=== PATIENT | female | born 1970 | race Two or more races ===

== ENCOUNTER 2017-06-03 19:30 | Inpatient (IN) | payer MEDICAID ==
--- NOTE | 2017-06-03 20:19 | ED Physician Chart ---
ED Chief Complaint/HPI - Patient Information Date Seen:: 06/03/17 Time Seen:: 20:00 Chief Complaint:: abdominal pain History of Present Illness:: Patient's had right upper quadrant abdominal pain for 3 days. Pain is currently 10 on a scale 1-10. She vomited all night last night. She last vomited this morning. She's had no diarrhea. She's had intermittent subjective fever. Patient is 0. Allergies:: Allergies Allergy/AdvReac Type Severity Reaction Status Date / Time No Known Allergies Allergy Verified 06/03/17 19:50 Vitals:: Vital Signs - 8 hr 06/03/17 19:30 Temp 99 F HR 88 RR 18 BP 157/91 O2 Sat % 99 Historian:: Patient, Friend Review:: Nurse's Note Reviewed ED Review of Systems - Review of Systems General/Constitutional: Fever Skin: No skin lesions Head: No headache Eyes: No loss of vision ENT: No earache Neck: No neck pain Cardio Vascular: No chest pain, No palpitations Pulmonary: No SOB GI: Nausea, Vomiting, Pain G/U: No dysuria Musculoskeletal: No bone or joint pain Endocrine: No polyuria Psychiatric: No prior psych history Hematopoietic: No bruising Allergic/Immuno: No urticaria Neurological: No syncope ED Past Medical History - Past Medical History Past Medical History: No significant medical hx Family History: None Social History: Non Smoker, No Alcohol Surgical History: None Psychiatricy History: None Medication: None Family Medical History - Family Member Mother Ethnicity: ED Physical Exam - Physical Examination General/Constitutional: Awake, Well-developed, well-nourished, Alert, No distress, GCS 15, Non-toxic appearing, Ambulatory Head: Atraumatic Eyes: Lids, conjuctiva normal, PERRL, EOMI Skin: Nl inspection, No rash, No skin lesions, No ecchymosis, Well hydrated, No lymphadenopathy ENMT: External ears, nose nl, Nasal exam nl, Lips, teeth, gums nl Neck: Nontender, Full ROM w/o pain, No JVD, No nuchal rigidity, No bruit, No mass, No stridor Respiratory: Nl effort/Exclusion, Clear to Auscultation, No Wheeze/Rhonchi/Rales Cardio Vascular: RRR, No murmur, gallop, rubs, NL S1 S2 GI: No organomegaly, No hernia, Normal BS's, Nondistended, No mass/bruits, No McBurney tenderness Other GI comments:: Right upper quadrant tenderness : No CVA tenderness Extremities: No tenderness or effusion, Full ROM, normal strength in all extremities, No edema, Normal digits & nails Neuro/Psych: Alert/oriented, DTR's symmetric, Normal sensory exam, Normal motor strength, Judgement/insight normal, Mood normal, Normal gait, No focal deficits Misc: Normal back, No paraspinal tenderness ED Labs/Radiology/EKG Results - Lab Results Results: Laboratory Results - last 24 hr 06/03/17 06/03/17 06/03/17 20:00 20:00 20:00 WBC 10.8 RBC 5.33 H Hgb 14.6 Hct 43.8 MCV 82.2 MCH 27.4 MCHC Differential 33.4 RDW 13.1 Plt Count 390 MPV 9.0 Neutrophils % 71.8 Lymphocytes % 22.1 Monocytes % 4.2 Eosinophils % 1.3 Basophils % 0.6 Sodium 137 Potassium 3.5 Chloride 102 Carbon Dioxide 26.2 Anion Gap 12.3 BUN 12 Creatinine 0.7 Est GFR ( Amer) > 60.0 Est GFR (Non-Af Amer) > 60.0 BUN/Creatinine Ratio 17.1 Glucose 98 Calcium 9.2 Magnesium 2.4 Lipase 28 Urine Test NEGATIVE - Radiology Results Results: Ultrasound showed cholecystitis and cholelithiasis ED Assessment - Assessment General Assessment: Patient should be admitted because she has cholecystitis as well as cholelithiasis ED Septic Shock - . Is Septic Shock (SBP<90, OR Lactate>4 mmol\L) present?: No - <6hrs of presentation: Vital Signs: Vital Signs - 8 hr 06/03/17 19:30 Temp 99 F HR 88 RR 18 BP 157/91 O2 Sat % 99 ED Reassessment (Disposition) - Reassessment Reassessment:: At 2245 patient's pain is subsided Reassessment Condition:: Improved - Diagnosis Diagnosis:: Biliary colic; cholelithiasis; cholecystitis - Patient Disposition Admitted to:: Med/Surg Spoke to:: Matt Schafer Admitting Medical Physician:: Matt Schafer Condition at Disposition:: Stable, Improved
[2017-06-03 20:25] LABS: % BASOPHILS 0.6 % (0.0-2.0); % EOSINOPHILS 1.3 % (0.0-5.0); % LYMPHOCYTES 22.1 % (20.0-50.0); % MONOCYTES 4.2 % (2.0-10.0); % NEUTROPHILS 71.8 % (40.0-80.0); BASOPHILE ABSOLUTE 0.1 Th/cumm (0-0.2); EOSINOPHILE ABSOLUTE 0.1 Th/cmm (0.1-0.4); HEMATOCRIT 43.8 % (41.0-60); HEMOGLOBIN 14.6 gm/dL (12-16); LYMPHOCYTE ABSOLUTE 2.4 Th/cmm (1.5-3.0); MEAN CELL VOLUME 82.2 fl (81-100); MEAN CORPUSCULAR HEMOGLOBIN 27.4 pg (27.0-31.0); MEAN CORPUSCULAR HGB CONC 33.4 pg (28.0-36.0); MONOCYTE ABSOLUTE 0.5 Th/cmm (0.3-1.0); NEUTROPHILE ABSOLUTE 7.7 Th/cmm (1.8-8.0); PLATELET COUNT 390 Th/cmm (150-400); RED BLOOD COUNT 5.33 Mil/cmm (3.80-5.10); RED CELL DISTRIBUTION WIDTH 13.1 % (11.5-20.0); WHITE BLOOD COUNT 10.8 Th/cmm (4.8-10.8)
[2017-06-03 20:33] LABS: ANION GAP 12.3 (7.0-16.0); BUN - UREA NITROGEN 12 mg/dL (7-25); CALCIUM SERUM 9.2 mg/dL (8.6-10.3); CARBON DIOXIDE 26.2 mEq/L (21.0-31.0); CHLORIDE 102 mEq/L (98-107); CREATININE - SERUM 0.7 mg/dL (0.6-1.2); GFR AFRICAN-AMERICAN > 60.0 ml/min (>90); GFR NON AFRICAN-AMERICAN > 60.0 ml/min; GLUCOSE 98 mg/dL (70-105); LIPASE 28 U/L (11-82); MAGNESIUM 2.4 mg/dL (1.9-2.7); POTASSIUM SERUM 3.5 mEq/L (3.5-5.1); SODIUM SERUM 137 mEq/L (136-145)
[2017-06-03] MEDS: D5-0.9%NS 1,000 ML IV SCH (23:05)
[2017-06-03] MEDS ORDERED: Piperacillin Sodium/Tazobact 3.375 gm Vial IV ONE (23:54)
[2017-06-04] MEDS ORDERED: Piperacillin Sodium/Tazobact 3.375 gm Vial IV ONE (05:11)
[2017-06-04 05:33] LABS: % BASOPHILS 0.2 % (0.0-2.0); % EOSINOPHILS 0.6 % (0.0-5.0); % MONOCYTES 4.3 % (2.0-10.0); % NEUTROPHILS 81.9 % (40.0-80.0); EOSINOPHILE ABSOLUTE 0.1 Th/cmm (0.1-0.4); HEMOGLOBIN 12.5 gm/dL (12-16); LYMPHOCYTE ABSOLUTE 1.4 Th/cmm (1.5-3.0); MEAN CELL VOLUME 81.8 fl (81-100); MEAN CORPUSCULAR HEMOGLOBIN 27.7 pg (27.0-31.0); MEAN CORPUSCULAR HGB CONC 33.8 pg (28.0-36.0); MEAN PLATELET VOLUME 8.4 fl; MONOCYTE ABSOLUTE 0.4 Th/cmm (0.3-1.0); NEUTROPHILE ABSOLUTE 8.5 Th/cmm (1.8-8.0); PLATELET COUNT 334 Th/cmm (150-400); RED BLOOD COUNT 4.53 Mil/cmm (3.80-5.10); RED CELL DISTRIBUTION WIDTH 12.7 % (11.5-20.0); WHITE BLOOD COUNT 10.4 Th/cmm (4.8-10.8)
[2017-06-04 05:39] LABS: HEMATOCRIT 37.1 % (41.0-60)
[2017-06-04 05:50] LABS: ALB/GLOB RATIO 1.2 (1.0-1.8); ALBUMIN 3.6 gm/dL (3.7-5.3); ALKALINE PHOSPHATASE 54 U/L (34-104); ANION GAP 11.2 (7.0-16.0); BILIRUBIN,TOTAL 0.3 mg/dL (0.3-1.0); BUN - UREA NITROGEN 9 mg/dL (7-25); CALCIUM SERUM 8.3 mg/dL (8.6-10.3); CARBON DIOXIDE 21.3 mEq/L (21.0-31.0); CHLORIDE 109 mEq/L (98-107); CREATININE - SERUM 0.7 mg/dL (0.6-1.2); GFR AFRICAN-AMERICAN > 60.0 ml/min (>90); GFR NON AFRICAN-AMERICAN > 60.0 ml/min; GLUCOSE 126 mg/dL (70-105); POTASSIUM SERUM 3.5 mEq/L (3.5-5.1); SGOT 11 U/L (13-39); SGPT/ALT 8 U/L (7-52); SODIUM SERUM 138 mEq/L (136-145); TOTAL PROTEIN,SERUM 6.5 gm/dL (6.0-8.3)
--- NOTE | 2017-06-04 07:45 | Diagnostic Imaging Report ---
Abdominal ultrasound HISTORY: Pain The liver exhibits a homogeneous parenchyma. No focal lesions. Intraluminal echogenic densities with acoustic shadowing seen in the gallbladder. Findings consistent with cholelithiasis. No biliary dilatation. The pancreas cannot be seen due to bowel gas. The right kidney appears normal. Left kidney could not be well visualized. If needed, a CT scan would provide additional anatomic evaluation. The spleen appears normal in size. No other definite retroperitoneal or intra-abdominal abnormalities. IMPRESSION: 1. Findings consistent with cholelithiasis 2. Nonvisualization of the left kidney. If needed, a CT scan provide additional anatomic evaluation.
[2017-06-04] MEDS ORDERED: Mag Sulfate 2gm/50mL Premix 2 GM/50 ML BAG IV PRN (08:36)
[2017-06-04] MEDS ORDERED: Potassium Chloride 20 mEq ER Tab PO PRN (08:36)
[2017-06-04] MEDS ORDERED: Morphine Sulfate 2 mg/mL 1mL Syr IVP PRN (08:36)
--- NOTE | 2017-06-04 09:06 | History & Physical ---
ADMIT DATE: 06/04/2017 CHIEF COMPLAINT: Intractable right upper quadrant abdominal pain. HISTORY OF PRESENT ILLNESS: The patient is a pleasant 46-year-old female. She has no past medical history. Yesterday, she started experiencing 10/10 right upper quadrant pain. She came to the ER where she was found to have acute cholecystitis. PAST MEDICAL HISTORY: None. SOCIAL HISTORY: She is unemployed. Denies any alcohol, tobacco, or drug abuse. 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 FAMILY HISTORY: Noncontributory. ALLERGIES: No known drug allergies. PAST SURGICAL HISTORY: She has never had any surgeries. MEDICATIONS: Denies taking any medications at home. REVIEW OF SYSTEMS: GENERAL: Positive recent fatigue and decreased appetite. HEENT: Negative. Oral is negative. NEUROLOGIC: Negative. CARDIOVASCULAR: Negative. ABDOMEN: Positive for 10/10 abdominal pain yesterday. GASTROINTESTINAL: Positive for nausea, but no vomiting. GENITOURINARY: Negative. MUSCULOSKELETAL: Negative. PSYCHIATRIC: Negative. NEUROLOGIC: Negative. PHYSICAL EXAMINATION: VITAL SIGNS: Temperature is 97.4 degrees, heart rate is 83, respirations 18, and blood pressure 119/69. Currently, the pain is about 2/10. GENERAL: No acute distress, awake, alert, pleasant. HEENT: No acute issues. NECK: Trachea is midline. CARDIOVASCULAR: Regular rate and rhythm. ABDOMEN: Tender to palpation in the right upper quadrant, but there is no guarding. SKIN: No rashes. EXTREMITIES: No edema. PSYCHIATRIC: No psychosis or hallucinations. LABORATORY DATA AND DIAGNOSTIC STUDIES: Ultrasound of the abdomen was done in the ER. The preliminary reports had acute cholecystitis. White count is 10. , hemoglobin is 14.6, platelet count is 390,000. Sodium 137, potassium 3.5, chloride 102, bicarb 26.2, BUN 12, creatinine 0.7, calcium is 8.3, albumin is 3.6. ASSESSMENT: 1. Acute cholecystitis. 2. Mild malnutrition. 3. Hypocalcemia. PLAN: Continue pain control and IV fluids as the patient is n.p.o. I will also make sure she has SCDs and Dr. Juárez has been consulted for surgery. IV Zosyn has already been started since admission. JOB# [id number]
[2017-06-04] MEDS ORDERED: IOHEXOL 300mgI/mL 100 ML VIAL PO ONE (09:41)
--- NOTE | 2017-06-04 10:42 | Diagnostic Imaging Report ---
CT scan abdomen and pelvis with and without intravenous contrast HISTORY: Pain, cholelithiasis Total DLP equals 655 CTDI equals 16.0 Axial sections were obtained from the xiphoid process down to the pubic symphysis before and after administration of intravenous contrast. The liver exhibits a normal size and contour. No focal lesions. The spleen appears normal. There is a dilated thick-walled gallbladder. Suggestion of pericholecystic fluid. Inflammatory change (cholecystitis) cannot be excluded. No focal abdomen is seen within the pancreas. The left kidney is not identified. Findings consistent with agenesis. No focal lesions seen within the right kidney. No hydronephrosis. The exam of the pelvis demonstrates a 4.5 cm cystic lesion within the right adnexal area. Smaller cystic bilateral adnexal lesions also noted. Small amount of free fluid seen within the lower pelvis. There is enlarged uterus with a heterogeneous myometrium consistent with fibroid changes. No definite abnormality seen in the region of the appendix. IMPRESSION: 1. Enlarged thick-walled gallbladder with evidence of pericholecystic fluid. Inflammatory change (cholecystitis) cannot be excluded. 2. 5.8 x 4.5 cm right adnexal cystic mass. Findings most likely related to the ovary. In view of the size, etiology is indeterminate. A follow-up ultrasound exam would provide assessment of a physiologic basis. Additional smaller bilateral adnexal cysts are also seen. Small amount of free fluid in the cul-de-sac region. Again, changes may be on a physiologic basis. However, a follow-up ultrasound exam during another phase in the menstrual cycle would provide assessment of a physiologic basis. 3. Enlarged uterus with evidence of fibroid changes 4. 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 Mildly enlarged right kidney is consistent with compensatory hypertrophy.
[2017-06-04] MEDS: Morphine Sulfate 4 mg/mL 1mL Syr IVP PRN ×2 (11:09→23:21)
[2017-06-04] MEDS: D5-0.9%NS 1,000 ML IV SCH (17:24)
[2017-06-04 20:12] LABS: A1C % 6.4 % (4.0-6.0)
[2017-06-04 23:31] LABS: URINE MICROSCOPIC INDICATED? YES; URINE SOURCE MIDSTREAM
[2017-06-04 23:37] LABS: URINE BILIRUBIN NEGATIVE (NEGATIVE); URINE BLOOD NEGATIVE (NEGATIVE); URINE GLUCOSE (UA) NEGATIVE (NEGATIVE); URINE KETONE NEGATIVE (NEGATIVE); URINE LEUKOCYTE ESTERASE NEGATIVE (NEGATIVE); URINE NITRATE NEGATIVE (NEGATIVE); URINE PH 6.5 (4.6 - 8.0); URINE PROTEIN NEGATIVE (NEGATIVE); URINE UROBILINOGEN 0.2 E.U./dL (0.2 - 1.0)
[2017-06-04 23:44] LABS: URINE CLARITY CLEAR (CLEAR); URINE COLOR YELLOW
[2017-06-04 23:46] LABS: URINE BACTERIA FEW /hpf (NONE SEEN); URINE EPITHELIAL CELLS FEW /lpf (FEW); URINE RBC 0-2 /hpf (0-5); URINE WBC 0-2 /hpf (0-5)
[2017-06-05 05:50] LABS: % BASOPHILS 0.3 % (0.0-2.0); % EOSINOPHILS 1.9 % (0.0-5.0); % LYMPHOCYTES 25.7 % (20.0-50.0); % MONOCYTES 5.4 % (2.0-10.0); % NEUTROPHILS 66.7 % (40.0-80.0); EOSINOPHILE ABSOLUTE 0.1 Th/cmm (0.1-0.4); HEMATOCRIT 37.2 % (41.0-60); HEMOGLOBIN 12.6 gm/dL (12-16); LYMPHOCYTE ABSOLUTE 1.8 Th/cmm (1.5-3.0); MEAN CELL VOLUME 80.9 fl (81-100); MEAN CORPUSCULAR HEMOGLOBIN 27.3 pg (27.0-31.0); MEAN CORPUSCULAR HGB CONC 33.7 pg (28.0-36.0); MEAN PLATELET VOLUME 8.4 fl; MONOCYTE ABSOLUTE 0.4 Th/cmm (0.3-1.0); NEUTROPHILE ABSOLUTE 4.6 Th/cmm (1.8-8.0); PLATELET COUNT 315 Th/cmm (150-400); RED BLOOD COUNT 4.61 Mil/cmm (3.80-5.10); RED CELL DISTRIBUTION WIDTH 12.7 % (11.5-20.0); WHITE BLOOD COUNT 6.9 Th/cmm (4.8-10.8)
[2017-06-05 06:03] LABS: INR 1.09 (0.5-1.4); PROTHROMBIN TIME (TEST) 11.3 SECONDS (9.5-11.5)
[2017-06-05 06:06] LABS: ANION GAP 9.3 (7.0-16.0); BUN - UREA NITROGEN 6 mg/dL (7-25); CALCIUM SERUM 8.2 mg/dL (8.6-10.3); CARBON DIOXIDE 24.2 mEq/L (21.0-31.0); CHLORIDE 108 mEq/L (98-107); CREATININE - SERUM 0.8 mg/dL (0.6-1.2); GFR AFRICAN-AMERICAN > 60.0 ml/min (>90); GFR NON AFRICAN-AMERICAN > 60.0 ml/min; GLUCOSE 118 mg/dL (70-105); POTASSIUM SERUM 3.5 mEq/L (3.5-5.1); SODIUM SERUM 138 mEq/L (136-145)
[2017-06-05] MEDS: D5-0.9%NS 1,000 ML IV SCH (06:29)
--- NOTE | 2017-06-05 09:44 | Discharge Summary ---
DATE OF DISCHARGE: 06/05/2017 DATE OF ADMISSION: 06/03/2017 DATE OF DISCHARGE: 06/05/2017 CAUSE OF ADMISSION: The patient is a pleasant 46-year-old female. She has no past medical history. She started experiencing right upper quadrant pain. She came to the ER, where she was found to have possible cholecystitis. ADMITTING DIAGNOSES: 1. Symptomatic cholelithiasis. 2. Mild malnutrition. 3. Hypocalcemia. 4. 5.8 x 4.5 cm right adnexal cystic mass. 5. Large uterus. 6. Left kidney agenesis. DISCHARGE DIAGNOSES: 1. Symptomatic cholelithiasis. 2. Mild malnutrition. 3. Hypocalcemia. 4. 5.8 x 4.5 cm right adnexal cystic mass. 5. Large uterus. 6. Left kidney agenesis. SUMMARY OF HOSPITAL COURSE: The patient's abdominal ultrasound and CT were done. She was found to have gallstones. Dr. Juárez was consulted. I had discussed the care plan with him as well. She has been cleared from his perspective. He feels that she does not have acute cholecystitis or as the stone and the cholelithiasis has been persistent for at least several months now. He believes that she needs to be seen by PATIENT ACCESS REPRESENTATIVE first because of the adnexal mass. I had a long discussion with the patient and the family members at the bedside. I explained to them that there is no EARLY BREASTFEEDING CARE SPECIALIST here. The patient's family rather take her home then instead of waiting for transfer. The patient and the family wanted to take her to the bigger hospital. They believe they will be going to [facility]. I explained to them that I will only discharge them, if they will have a followup care. They state that they will be taking her to the bigger hospital and they rather do it themselves instead of having to wait for transfer. PHYSICAL EXAMINATION: VITAL SIGNS: Temperature 97.4 degrees, heart rate is 69, respiration is 17, blood pressure 104/46. Currently, no pain. GENERAL: No acute distress, awake, alert, pleasant. HEENT: No acute issues. NECK: Trachea in midline. ABDOMEN: Currently, there is no pain or distension. However, there is some tenderness to palpation in the right upper quadrant. There are no fevers or chills. EXTREMITIES: No edema. SKIN: No rashes. LABORATORY DATA: White count is 6.9, hemoglobin is 12.6, platelet count 215,000. Sodium 138, potassium 3.5, chloride 108, bicarbonate 24.2, BUN 6, creatinine 0.8, calcium is 8.2. CT abdomen and pelvis shows the above-mentioned mass, which is adnexal. Abdominal ultrasound does show gallstones. PROGNOSIS: Fair. DISPOSITION: As mentioned above. The patient's family and the patient rather will be discharged and themselves go straight to bigger hospital. They do not want to wait for transfer. The patient is being discharged and the family will be taking her to a bigger hospital, where she can have PATIENT ACCESS REPRESENTATIVE see her as well. I explained to them that it is important that they follow up at the hospital instead of waiting to follow up outpatient. MEDICATIONS: No new medications. PROGNOSIS: Fair. JOB# [id number]
--- NOTE | 2017-06-05 10:00 | General Progress Note ---
Subjective - Review of Systems Service Date: 06/05/17 Events since last encounter: patient referred to [facility] for evaluation of gynecologic pathology Objective - Results Result Diagrams: 06/05/17 05:26 06/05/17 05:26 Recent Labs: Laboratory Last Values WBC 6.9 Th/cmm (4.8-10.8) 06/05/17 05:26 RBC 4.61 Mil/cmm (3.80-5.10) 06/05/17 05:26 Hgb 12.6 gm/dL (12-16) 06/05/17 05:26 Hct 37.2 % (41.0-60) L 06/05/17 05:26 MCV 80.9 fl (81-100) L 06/05/17 05:26 MCH 27.3 pg (27.0-31.0) 06/05/17 05:26 MCHC Differential 33.7 pg (28.0-36.0) 06/05/17 05:26 RDW 12.7 % (11.5-20.0) 06/05/17 05:26 Plt Count 315 Th/cmm (150-400) 06/05/17 05:26 MPV 8.4 fl 06/05/17 05:26 Neutrophils % 66.7 % (40.0-80.0) 06/05/17 05:26 Lymphocytes % 25.7 % (20.0-50.0) 06/05/17 05:26 Monocytes % 5.4 % (2.0-10.0) 06/05/17 05:26 Eosinophils % 1.9 % (0.0-5.0) 06/05/17 05:26 Basophils % 0.3 % (0.0-2.0) 06/05/17 05:26 PT 11.3 SECONDS (9.5-11.5) 06/05/17 05:26 INR 1.09 (0.5-1.4) 06/05/17 05:26 Sodium 138 mEq/L (136-145) 06/05/17 05:26 Potassium 3.5 mEq/L (3.5-5.1) 06/05/17 05:26 Chloride 108 mEq/L (98-107) H 06/05/17 05:26 Carbon Dioxide 24.2 mEq/L (21.0-31.0) 06/05/17 05:26 Anion Gap 9.3 (7.0-16.0) 06/05/17 05:26 BUN 6 mg/dL (7-25) L 06/05/17 05:26 Creatinine 0.8 mg/dL (0.6-1.2) 06/05/17 05:26 Est GFR ( Amer) > 60.0 ml/min (>90) 06/05/17 05:26 Est GFR (Non-Af Amer) > 60.0 ml/min 06/05/17 05:26 BUN/Creatinine Ratio 7.5 06/05/17 05:26 Glucose 118 mg/dL (70-105) H 06/05/17 05:26 Hemoglobin A1c % 6.4 % (4.0-6.0) H 06/04/17 05:05 Calcium 8.2 mg/dL (8.6-10.3) L 06/05/17 05:26 Magnesium 2.1 mg/dL (1.9-2.7) 06/04/17 05:05 Total Bilirubin 0.3 mg/dL (0.3-1.0) 06/04/17 05:05 AST 11 U/L (13-39) L 06/04/17 05:05 ALT 8 U/L (7-52) 06/04/17 05:05 Alkaline Phosphatase 54 U/L (34-104) 06/04/17 05:05 Total Protein 6.5 gm/dL (6.0-8.3) 06/04/17 05:05 Albumin 3.6 gm/dL (3.7-5.3) L 06/04/17 05:05 Globulin 2.9 gm/dL 06/04/17 05:05 Albumin/Globulin Ratio 1.2 (1.0-1.8) 06/04/17 05:05 Lipase 28 U/L (11-82) 06/03/17 20:00 Urine Source MIDSTREAM 06/04/17 23:10 Urine Color YELLOW 06/04/17 23:10 Urine Clarity CLEAR (CLEAR) 06/04/17 23:10 Urine pH 6.5 (4.6 - 8.0) 06/04/17 23:10 Ur Specific [place] 1.020 (1.005-1.030) 06/04/17 23:10 Urine Protein NEGATIVE mg/dL (NEGATIVE) 06/04/17 23:10 Urine Glucose (UA) NEGATIVE mg/dL (NEGATIVE) 06/04/17 23:10 Urine Ketones NEGATIVE mg/dL (NEGATIVE) 06/04/17 23:10 Urine Blood NEGATIVE (NEGATIVE) 06/04/17 23:10 Urine Nitrate NEGATIVE (NEGATIVE) 06/04/17 23:10 Urine Bilirubin NEGATIVE (NEGATIVE) 06/04/17 23:10 Urine Urobilinogen 0.2 E.U./dL (0.2 - 1.0) 06/04/17 23:10 Ur Leukocyte Esterase NEGATIVE (NEGATIVE) 06/04/17 23:10 Urine RBC 0-2 /hpf (0-5) 06/04/17 23:10 Urine WBC 0-2 /hpf (0-5) 06/04/17 23:10 Ur Epithelial Cells FEW /lpf (FEW) 06/04/17 23:10 Urine Bacteria FEW /hpf (NONE SEEN) 06/04/17 23:10 Urine Test NEGATIVE 06/03/17 20:00 - Physical Exam Vitals and I&O: Vital Signs Temp 97.4 F 06/05/17 04:41 Pulse 69 06/05/17 04:41 Resp 17 06/05/17 04:41 BP 104/46 06/05/17 04:41 Pulse Ox 95 06/05/17 04:41 Intake & Output 06/04/17 06/05/17 06/05/17 18:59 06:59 18:59 Intake Total 1600 1050 Output Total 0 Balance 1600 1050 Weight (lbs) 57.243 kg 55.928 kg Intake: Intake, IV Amount 1100 1050 D5-0.9%Ns 1,000 ml @ 80 1000 1000 mls/hr IV .[id number] [facility] Rx #:[id number] Piperacillin Sodium/ 100 50 Tazobact 3.375 gm In Sodium Chloride 0.9% 50 ml @ 100 mls/hr IV Q6HR [facility] Rx#:[id number] Oral 500 Output: Stool 0 Other: # Voids 3 4 Weight Source Estimated Bedscale Active Medications: Current Medications Acetaminophen (Tylenol) 650 mg PO Q6H PRN PRN Reason: HEADACHE/TEMP ABOVE 100F Stop: 08/03/17 08:35 Dextrose/Sodium Chloride (D5-0.9%Ns) 1,000 mls @ 80 mls/hr IV .[id number] [facility] Stop: 08/02/17 22:59 Last Admin: 06/05/17 06:29 Dose: 80 mls/hr Piperacillin Sod/Tazobactam (Sod 3.375 gm/ Sodium Chloride) 50 mls @ 100 mls/ hr IV Q6HR [facility] Stop: 08/03/17 00:00 Last Admin: 06/05/17 06:29 Dose: 100 mls/hr Magnesium Sulfate (Magnesium Sulfate Premix) 2 gm in 50 mls @ 25 mls/hr IV DAILY PRN PRN Reason: Magnesium level less than 1.6 Stop: 08/03/17 08:35 Lorazepam (Ativan) 1 mg IVP Q4HR PRN; Protocol PRN Reason: Anxiety Stop: 08/03/17 08:35 Magnesium Oxide (Mag-Oxide) 400 mg PO BID PRN PRN Reason: Mg less than 1.9 Stop: 08/03/17 08:35 Miscellaneous (Zosyn Iv Per Pharmacy) 1 ea MC PRN PRN PRN Reason: PROTOCOL Stop: 08/02/17 22:46 Morphine Sulfate (Morphine) 2 mg IVP Q4H PRN PRN Reason: Pain (Moderate) Stop: 08/02/17 23:29 Last Admin: 06/04/17 23:21 Dose: 2 mg Ondansetron HCl (Zofran) 4 mg IVP Q6H PRN PRN Reason: Nausea / Vomiting Stop: 08/03/17 08:35 Potassium Chloride (Klor-Con) 40 meq PO DAILY PRN PRN Reason: k level less than 3.5 Stop: 08/03/17 08:35 Zolpidem Tartrate (Ambien) 10 mg PO HS PRN PRN Reason: Insomnia Stop: 08/03/17 08:35
--- NOTE | 2017-06-05 10:54 | Consultation ---
DATE OF CONSULTATION: 06/04/2017 SURGICAL CONSULT REFERRING PHYSICIAN: Dr. Schafer. REASON FOR CONSULTATION: Abdominal pain. Thank you for referring this patient to me. HISTORY OF PRESENT ILLNESS: This is a 46-year-old female admitted through the Emergency Room because of abdominal pain, nausea and vomiting. Interview was conducted via an silk washing machine operator. She admits to having had this pain not only in the right upper quadrant, but the lower abdomen as well for the last several months. Pain is worse now, so she came to the Emergency Room and was admitted. PAST MEDICAL HISTORY: Apparently unremarkable. No previous . No surgery. LABORATORY AND DIAGNOSTIC STUDIES: On this admission, the CBC was completely normal as well as the chemistry. The hemoglobin A1c is slightly elevated to 6.4, although the blood sugar on admission was 98. She underwent ultrasound study and this showed findings consistent with cholelithiasis and nonvisualization of the left kidney. In view of this, additional diagnostic study was done. A CT scan of the abdomen and pelvis was ordered. This study showed absence of the left kidney and some compensatory enlargement on the right. The gallbladder is thick walled. There is a 5 x 8 x 4.5 cm right adnexal mass, likely related to ovary as well as enlarged uterus with possible fibroid changes. There is free fluid in the cul-de-sac. PHYSICAL EXAMINATION: Tenderness mostly in the right upper quadrant, but some discomfort in the pelvis. RECOMMENDATIONS: In view of these new findings and the normal lab studies including CBC and liver function test related to the gallbladder, I would recommend a SILVERWARE BUFFING MACHINE OPERATOR evaluation first before the cholecystectomy is performed or this can be done at the same time depending on the gynecology evaluation and treatment plans. We have no silver miner blasting at this facility and admitting physician has referred her to [facility]. JOB# [id number]
[2017-06-05] MEDS: Morphine Sulfate 4 mg/mL 1mL Syr IVP PRN (11:57)
--- NOTE | 2017-06-05 14:05 | Discharge Summary ---
DATE OF DISCHARGE: ADDENDUM Keeping the patient's safety in mind, it was advised to the patient to let us try transfer. The patient and the family are in agreement, so the discharge is being held so that we can try to arrange direct transfer to higher level of care. The patient and the family are in agreement. JOB# [id number]
--- NOTE | 2017-06-05 16:55 | Discharge Summary ---
DATE OF DISCHARGE: 06/05/2017 ADDENDUM This is a followup to the transfer for the patient. Fortunately, the patient was accepted by Dr. Lobo, the DOOR TO DOOR SALESMAN at [facility], so she is being transferred there. She will likely need to be seen by surgeon as well. She has multiple issues including the adnexal mass and gallstones as well. She is being transferred to [facility]. The family is pleased that we do have a safe discharge/transfer and the patient will be seen by appropriate consultants. JOB# [id number]
[2017-06-06] MEDS: D5-0.9%NS 1,000 ML IV SCH ×2 (00:29)
[2017-06-06] MEDS: Morphine Sulfate 4 mg/mL 1mL Syr IVP PRN (00:31)
--- NOTE | 2017-06-06 05:15 | General Progress Note ---
Subjective - Review of Systems Service Date: 06/06/17 Events since last encounter: The patient was to be transferred to [facility] for possible surgery, however, Dr. Lobo has refused to accept the patient at this time. community services coordinator were to continue to look for possible placement for surgery. Subjective: The patient is resting comfortably in bed and does not appear to be in any acute pain or distress. No complaints at this time. Denies chest pain, shortness of breath, nausea, vomiting, dysuria, or falls Objective - Results Result Diagrams: 06/05/17 05:26 06/05/17 05:26 Recent Labs: Laboratory Last Values WBC 6.9 Th/cmm (4.8-10.8) 06/05/17 05:26 RBC 4.61 Mil/cmm (3.80-5.10) 06/05/17 05:26 Hgb 12.6 gm/dL (12-16) 06/05/17 05:26 Hct 37.2 % (41.0-60) L 06/05/17 05:26 MCV 80.9 fl (81-100) L 06/05/17 05:26 MCH 27.3 pg (27.0-31.0) 06/05/17 05:26 MCHC Differential 33.7 pg (28.0-36.0) 06/05/17 05:26 RDW 12.7 % (11.5-20.0) 06/05/17 05:26 Plt Count 315 Th/cmm (150-400) 06/05/17 05:26 MPV 8.4 fl 06/05/17 05:26 Neutrophils % 66.7 % (40.0-80.0) 06/05/17 05:26 Lymphocytes % 25.7 % (20.0-50.0) 06/05/17 05:26 Monocytes % 5.4 % (2.0-10.0) 06/05/17 05:26 Eosinophils % 1.9 % (0.0-5.0) 06/05/17 05:26 Basophils % 0.3 % (0.0-2.0) 06/05/17 05:26 PT 11.3 SECONDS (9.5-11.5) 06/05/17 05:26 INR 1.09 (0.5-1.4) 06/05/17 05:26 Sodium 138 mEq/L (136-145) 06/05/17 05:26 Potassium 3.5 mEq/L (3.5-5.1) 06/05/17 05:26 Chloride 108 mEq/L (98-107) H 06/05/17 05:26 Carbon Dioxide 24.2 mEq/L (21.0-31.0) 06/05/17 05:26 Anion Gap 9.3 (7.0-16.0) 06/05/17 05:26 BUN 6 mg/dL (7-25) L 06/05/17 05:26 Creatinine 0.8 mg/dL (0.6-1.2) 06/05/17 05:26 Est GFR ( Amer) > 60.0 ml/min (>90) 06/05/17 05:26 Est GFR (Non-Af Amer) > 60.0 ml/min 06/05/17 05:26 BUN/Creatinine Ratio 7.5 06/05/17 05:26 Glucose 118 mg/dL (70-105) H 06/05/17 05:26 Hemoglobin A1c % 6.4 % (4.0-6.0) H 06/04/17 05:05 Calcium 8.2 mg/dL (8.6-10.3) L 06/05/17 05:26 Magnesium 2.1 mg/dL (1.9-2.7) 06/04/17 05:05 Total Bilirubin 0.3 mg/dL (0.3-1.0) 06/04/17 05:05 AST 11 U/L (13-39) L 06/04/17 05:05 ALT 8 U/L (7-52) 06/04/17 05:05 Alkaline Phosphatase 54 U/L (34-104) 06/04/17 05:05 Total Protein 6.5 gm/dL (6.0-8.3) 06/04/17 05:05 Albumin 3.6 gm/dL (3.7-5.3) L 06/04/17 05:05 Globulin 2.9 gm/dL 06/04/17 05:05 Albumin/Globulin Ratio 1.2 (1.0-1.8) 06/04/17 05:05 Lipase 28 U/L (11-82) 06/03/17 20:00 Urine Source MIDSTREAM 06/04/17 23:10 Urine Color YELLOW 06/04/17 23:10 Urine Clarity CLEAR (CLEAR) 06/04/17 23:10 Urine pH 6.5 (4.6 - 8.0) 06/04/17 23:10 Ur Specific [place] 1.020 (1.005-1.030) 06/04/17 23:10 Urine Protein NEGATIVE mg/dL (NEGATIVE) 06/04/17 23:10 Urine Glucose (UA) NEGATIVE mg/dL (NEGATIVE) 06/04/17 23:10 Urine Ketones NEGATIVE mg/dL (NEGATIVE) 06/04/17 23:10 Urine Blood NEGATIVE (NEGATIVE) 06/04/17 23:10 Urine Nitrate NEGATIVE (NEGATIVE) 06/04/17 23:10 Urine Bilirubin NEGATIVE (NEGATIVE) 06/04/17 23:10 Urine Urobilinogen 0.2 E.U./dL (0.2 - 1.0) 06/04/17 23:10 Ur Leukocyte Esterase NEGATIVE (NEGATIVE) 06/04/17 23:10 Urine RBC 0-2 /hpf (0-5) 06/04/17 23:10 Urine WBC 0-2 /hpf (0-5) 06/04/17 23:10 Ur Epithelial Cells FEW /lpf (FEW) 06/04/17 23:10 Urine Bacteria FEW /hpf (NONE SEEN) 06/04/17 23:10 Urine Test NEGATIVE 06/03/17 20:00 - Physical Exam Vitals and I&O: Vital Signs Temp 97.2 F 06/06/17 00:00 Pulse 75 06/06/17 00:00 Resp 18 06/06/17 00:00 BP 131/70 06/06/17 00:00 Pulse Ox 98 06/06/17 00:00 Intake & Output 06/05/17 06/05/17 06/06/17 06:59 18:59 06:59 Intake Total 1100 1100 Output Total 0 Balance 1100 1100 Weight (lbs) 55.928 kg Intake: Intake, IV Amount 1100 1100 D5-0.9%Ns 1,000 ml @ 80 1000 1000 mls/hr IV .[id number] [facility] Rx #:[id number] Piperacillin Sodium/ 100 100 Tazobact 3.375 gm In Sodium Chloride 0.9% 50 ml @ 100 mls/hr IV Q6HR [facility] Rx#:[id number] Output: Stool 0 Other: # Voids 4 Weight Source Bedscale Active Medications: Current Medications Acetaminophen (Tylenol) 650 mg PO Q6H PRN PRN Reason: HEADACHE/TEMP ABOVE 100F Stop: 08/03/17 08:35 Dextrose/Sodium Chloride (D5-0.9%Ns) 1,000 mls @ 80 mls/hr IV .[id number] [facility] Stop: 08/02/17 22:59 Last Admin: 06/06/17 00:29 Dose: 80 mls/hr Piperacillin Sod/Tazobactam (Sod 3.375 gm/ Sodium Chloride) 50 mls @ 100 mls/ hr IV Q6HR [facility] Stop: 08/03/17 00:00 Last Admin: 06/06/17 00:29 Dose: 100 mls/hr Magnesium Sulfate (Magnesium Sulfate Premix) 2 gm in 50 mls @ 25 mls/hr IV DAILY PRN PRN Reason: Magnesium level less than 1.6 Stop: 08/03/17 08:35 Lorazepam (Ativan) 1 mg IVP Q4HR PRN; Protocol PRN Reason: Anxiety Stop: 08/03/17 08:35 Magnesium Oxide (Mag-Oxide) 400 mg PO BID PRN PRN Reason: Mg less than 1.9 Stop: 08/03/17 08:35 Miscellaneous (Zosyn Iv Per Pharmacy) 1 ea MC PRN PRN PRN Reason: PROTOCOL Stop: 08/02/17 22:46 Morphine Sulfate (Morphine) 2 mg IVP Q4H PRN PRN Reason: Pain (Moderate) Stop: 08/02/17 23:29 Last Admin: 06/06/17 00:31 Dose: 2 mg Ondansetron HCl (Zofran) 4 mg IVP Q6H PRN PRN Reason: Nausea / Vomiting Stop: 08/03/17 08:35 Potassium Chloride (Klor-Con) 40 meq PO DAILY PRN PRN Reason: k level less than 3.5 Stop: 08/03/17 08:35 Zolpidem Tartrate (Ambien) 10 mg PO HS PRN PRN Reason: Insomnia Stop: 08/03/17 08:35 General: Alert, Oriented x3, No acute distress HEENT: Atraumatic, PERRLA, EOMI Neck: Supple Cardiovascular: Regular rate, Normal S1, Normal S2 Lungs: Clear to auscultation, Normal air movement Abdomen: Soft, Other (tenderness to palpation with decreased bowel sounds) Neurological: Normal gait, Strength at 5/5 X4 ext Psych/Mental Status: Mental status NL Assessment/Plan - Assessment Assessment: Symptomatically cholelithiasis Mild malnutrition Hypocalcemia 5.8 x 4.5 cm right adnexal cystic mass sliding large uterus Left kidney agenesis - Plan Plan: Continue IV antibiotics and IV fluids. Pain control. Surgery is following. Case management is looking for placement for potential surgery. The patient has been cleared by Dr Juárez because he feels that she does not have acute cholecystitis, but symptomatic cholelithiasis and feels that she needs to be seen by [facility] for the right adnexal mass. There is a potential transfer to [facility], however, Dr. Lobo has refused to operate on the patient at this time. Follow-up placement
[2017-06-06 05:46] LABS: % BASOPHILS 0.5 % (0.0-2.0); % EOSINOPHILS 2.3 % (0.0-5.0); % LYMPHOCYTES 30.2 % (20.0-50.0); EOSINOPHILE ABSOLUTE 0.1 Th/cmm (0.1-0.4); HEMATOCRIT 37.3 % (41.0-60); HEMOGLOBIN 12.5 gm/dL (12-16); LYMPHOCYTE ABSOLUTE 1.8 Th/cmm (1.5-3.0); MEAN CELL VOLUME 81.6 fl (81-100); MEAN CORPUSCULAR HEMOGLOBIN 27.3 pg (27.0-31.0); MEAN CORPUSCULAR HGB CONC 33.4 pg (28.0-36.0); MEAN PLATELET VOLUME 8.6 fl; MONOCYTE ABSOLUTE 0.3 Th/cmm (0.3-1.0); NEUTROPHILE ABSOLUTE 3.7 Th/cmm (1.8-8.0); PLATELET COUNT 325 Th/cmm (150-400); RED BLOOD COUNT 4.58 Mil/cmm (3.80-5.10); RED CELL DISTRIBUTION WIDTH 12.7 % (11.5-20.0); WHITE BLOOD COUNT 5.9 Th/cmm (4.8-10.8)
[2017-06-06 05:56] LABS: ANION GAP 10.5 (7.0-16.0); BUN - UREA NITROGEN 5 mg/dL (7-25); CALCIUM SERUM 8.4 mg/dL (8.6-10.3); CARBON DIOXIDE 21.7 mEq/L (21.0-31.0); CHLORIDE 108 mEq/L (98-107); CREATININE - SERUM 0.8 mg/dL (0.6-1.2); GFR AFRICAN-AMERICAN > 60.0 ml/min (>90); GFR NON AFRICAN-AMERICAN > 60.0 ml/min; GLUCOSE 116 mg/dL (70-105); POTASSIUM SERUM 3.2 mEq/L (3.5-5.1); SODIUM SERUM 137 mEq/L (136-145)
[2017-06-07] MEDS: Morphine Sulfate 4 mg/mL 1mL Syr IVP PRN (00:23)
[2017-06-07] MEDS: D5-0.9%NS 1,000 ML IV SCH (05:40)
[2017-06-07 05:56] LABS: % EOSINOPHILS 1.9 % (0.0-5.0); % LYMPHOCYTES 28.2 % (20.0-50.0); % MONOCYTES 5.2 % (2.0-10.0); % NEUTROPHILS 63.7 % (40.0-80.0); BASOPHILE ABSOLUTE 0.1 Th/cumm (0-0.2); EOSINOPHILE ABSOLUTE 0.1 Th/cmm (0.1-0.4); HEMOGLOBIN 13.2 gm/dL (12-16); LYMPHOCYTE ABSOLUTE 1.6 Th/cmm (1.5-3.0); MEAN CELL VOLUME 80.8 fl (81-100); MEAN CORPUSCULAR HEMOGLOBIN 27.3 pg (27.0-31.0); MEAN CORPUSCULAR HGB CONC 33.8 pg (28.0-36.0); MEAN PLATELET VOLUME 8.8 fl; MONOCYTE ABSOLUTE 0.3 Th/cmm (0.3-1.0); NEUTROPHILE ABSOLUTE 3.7 Th/cmm (1.8-8.0); PLATELET COUNT 342 Th/cmm (150-400); RED BLOOD COUNT 4.82 Mil/cmm (3.80-5.10); RED CELL DISTRIBUTION WIDTH 12.7 % (11.5-20.0); WHITE BLOOD COUNT 5.8 Th/cmm (4.8-10.8)
[2017-06-07 06:13] LABS: ANION GAP 9.1 (7.0-16.0); BUN - UREA NITROGEN 5 mg/dL (7-25); CALCIUM SERUM 8.9 mg/dL (8.6-10.3); CARBON DIOXIDE 23.4 mEq/L (21.0-31.0); CHLORIDE 109 mEq/L (98-107); CREATININE - SERUM 0.8 mg/dL (0.6-1.2); GFR AFRICAN-AMERICAN > 60.0 ml/min (>90); GFR NON AFRICAN-AMERICAN > 60.0 ml/min; GLUCOSE 90 mg/dL (70-105); POTASSIUM SERUM 3.5 mEq/L (3.5-5.1); SODIUM SERUM 138 mEq/L (136-145)
--- NOTE | 2017-06-07 20:13 | Discharge Summary ---
DATE OF DISCHARGE: 06/07/2017 ADMITTING DIAGNOSES: Acute cholecystitis, mild malnutrition, hypocalcemia. DISCHARGE DIAGNOSES: Symptomatic cholelithiasis, mild malnutrition, left kidney agenesis, 5.8 x 4.5 cm right adnexal cystic mass with enlarged uterus. HISTORY OF PRESENT ILLNESS: A 46-year-old female presented from home with a chief complaint of abdominal pain for a couple of days. She was admitted to Med/Surg. CT of the abdomen revealed possible acute cholecystitis and a right adnexal mass. General Surgery was consulted. Dr. Juárez evaluated the patient and stated that she does not have acute cholecystitis, but symptomatic cholelithiasis. The patient was started on pain control, IV fluids and antibiotics. The adnexal mass was of concern. We attempted to transfer the patient to different acute care facility. There potentially, she had the mass removed; however, the patient was unable to find placement and then the patient and her family asked to be discharged. They would prefer to go home with pain medication and follow up as an outpatient to arrange for possible surgery at that time. The patient's pain is currently well controlled. She is tolerating oral intake and passing stool. COMPLICATIONS: None. PROCEDURES: None. VITAL SIGNS: 97, 73, 128/71 and 98.2. MEDICATIONS: Reviewed and reconciled. DISPOSITION: Home, stable. FOLLOWUP: Follow up with PCP in 3 days. JOB# [id number]
== END 2017-06-07 14:30 | disposition home or self-care (01) ==
LOC: ER 19:30 → MSI 22:45
PROVIDERS: ADMIT General Practice; ATTEND General Practice
DX: K80.20 Calculus of gallbladder without cholecystitis without obstruction (principal); E44.1 Mild protein-calorie malnutrition; Q60.0 Renal agenesis, unilateral; E83.51 Hypocalcemia; N83.201 Unspecified ovarian cyst, right side; Z68.26 Body mass index [BMI] 26.0-26.9, adult
CPT/HCPCS: 36415-UA; 76700-TC; 80048-TC; 80053-TC; 81001-TC; 81025-TC; 83036-90; 83690-TC; 83735-TC; 85025-TC; 85610-TC; 93005; 96374; J1885; J2543; J7042; Q9967; Z7610